=== PATIENT | female | born 1935 | race Caucasian/White ===

== ENCOUNTER 2017-06-16 03:10 | Emergency (ER) | payer MEDICARE ==
[~2017-06-16] VITALS: Ht 157.5 cm; Wt 51.0 kg
[2017-06-16] MEDS ORDERED: ONDANSETRON 2MG/ML, 2ML IVPush ONE (03:30)
[2017-06-16] MEDS ORDERED: SODIUM CHLORIDE 0.9% 1,000ML IVBOLUS ONE (03:30)
[2017-06-16] MEDS ORDERED: SODIUM CHLORIDE FLUSH 10ML SYR IVF ONE (03:30)
[2017-06-16] MEDS ORDERED: ONDANSETRON 2MG/ML, 2ML ONE (03:53)
[2017-06-16] MEDS ORDERED: DIAZ2TAB3 PO (04:00)
[2017-06-16] MEDS ORDERED: MORP-52 PO (04:00)
[2017-06-16] MEDS ORDERED: CEFD125S3 PO (04:00)
[2017-06-16] MEDS ORDERED: FURO20TA3 PO (04:00)
[2017-06-16] MEDS ORDERED: ATOR80TA75 PO (04:00)
[2017-06-16] MEDS ORDERED: METR250T PO (04:00)
[2017-06-16] MEDS ORDERED: METO25TA35 PO (04:00)
[2017-06-16] MEDS ORDERED: LEVO25TA4 PO (04:00)
[2017-06-16] MEDS ORDERED: TRAM50TA2 PO (04:00)
[2017-06-16] MEDS ORDERED: IRBE1TAB61 PO (04:00)
[2017-06-16] MEDS ORDERED: MORPHINE SULFATE 4 MG/ML, 1ML ONE ×2 (04:18→06:45)
[2017-06-16] MEDS: MORPHINE SULFATE 4 MG/ML, 1ML IVPush PRN ×2 (04:22→06:46)
[2017-06-16 04:30] LABS: ASPARTATE AMINO TRANSFERASE 29 U/L (15-37); BLOOD UREA NITROGEN 8 mg/dL (7-18)
[2017-06-16 05:33] LABS: IS PT STATUS REG ER OR PRE ER? YES
[2017-06-16 06:43] VITALS: BP 166/73
[2017-06-16] MEDS ORDERED: OMNIPAQUE 350 MG/ML, 100ML BOTTLE ONE (19:33)
== END 2017-06-16 07:25 | disposition home or self-care (01) ==
LOC: ED 07:22
DX: K52.1 Toxic gastroenteritis and colitis (principal); T36.8X5A Adverse effect of other systemic antibiotics, initial encounter; I10 Essential (primary) hypertension; I25.2 Old myocardial infarction; Y92.89 Other specified places as the place of occurrence of the external cause; Z90.49 Acquired absence of other specified parts of digestive tract; Z90.710 Acquired absence of both cervix and uterus
CPT/HCPCS: 36415; 71010; 74177; 80053; 81001; 83690; 83880; 84484; 85025; 93005; 96361; 96374; 96375; 96376; 99285; J2405; J7030; Q9967